=== PATIENT | female | born 1975 | race Caucasian/White ===

== ENCOUNTER → 2018-12-23 | Outpatient (CLI) | payer BC | LOC: MC.RAD 15:30 | DX: Z12.31 Encounter for screening mammogram for malignant neoplasm of breast (principal); N63.21 Unspecified lump in the left breast, upper outer quadrant ==

== ENCOUNTER → 2018-12-30 | Outpatient (CLI) | payer BC | LOC: MC.RAD 10:00 | DX: N63.32 Unspecified lump in axillary tail of the left breast (principal); R59.0 Localized enlarged lymph nodes ==

== ENCOUNTER → 2018-12-31 | Outpatient (CLI) | payer BC | LOC: MC.RAD 13:31 | DX: N63.20 Unspecified lump in the left breast, unspecified quadrant (principal); Z98.82 Breast implant status ==

== ENCOUNTER → 2019-01-17 | Outpatient (CLI) | payer BC | LOC: COL.VAS 01-14 10:45 | DX: Z51.11 Encounter for antineoplastic chemotherapy (principal); C50.612 Malignant neoplasm of axillary tail of left female breast ==

== ENCOUNTER → 2019-03-16 | Outpatient (CLI) | payer BC | LOC: MC.RAD 08:24 | DX: C50.612 Malignant neoplasm of axillary tail of left female breast (principal) ==

== ENCOUNTER 2019-06-28 06:49 | Day surgery (SDC) | payer BC ==
[~2019-06-28] VITALS: Ht 172.7 cm; Wt 111.6 kg
[2019-06-28] MEDS ORDERED: VENTOLIN0.09 MG IH (08:12)
[2019-06-28] MEDS ORDERED: NEURONTIN300 MG/CAP PO ×2 (08:13→08:14)
[2019-06-28] MEDS ORDERED: VALTREX 50500 MG/TAB PO (08:14)
[2019-06-28] MEDS ORDERED: LEXAPRO 10MG10 MG PO (08:15)
[2019-06-28] MEDS ORDERED: FLONASE NASAL S16 GM NS (08:15)
[2019-06-28] MEDS ORDERED: ZOFRAN8 MG PO (08:16)
[2019-06-28] MEDS ORDERED: COMPAZINE 110 MG/TAB PO (08:16)
[2019-06-28] MEDS ORDERED: PRILOTC PO (08:17)
[2019-06-28] MEDS ORDERED: ZYRTEC 10MG10 MG PO (08:18)
[2019-06-28] MEDS ORDERED: MULTIPLE VITAMI1 CAP PO (08:18)
[2019-06-28] MEDS ORDERED: VITAMINC1000TA PO (08:19)
[2019-06-28] MEDS ORDERED: [UNRECOGNIZED DRUG - OTHER] PO (08:20)
[2019-06-28] MEDS ORDERED: PROBIOTIC PO (08:20)
[2019-06-28] MEDS ORDERED: DULCOLAX STOOL100 MG PO (08:20)
--- NOTE | 2019-06-28 09:15 | NUR ---
Patient returns to radiology per wheelchair with radiology staff.
--- NOTE | 2019-06-28 11:05 | NUR ---
Patient returns from radiology per wheelchair and ambulates to the bathroom. Gait steady and resting on cart. IV fluids connected to port a catheter on the right chest. Family at bedside. Call light in reach and allowed to rest.
[2019-06-28 11:18] VITALS: BP 126/80; PULSE 84; TEMP 97.9
[2019-06-28 15:35] VITALS: BP 116/77; PULSE 96
--- NOTE | 2019-06-28 15:35 | NUR ---
Patient returns to room 1 per cart from PACU and is awake and alert. Accompanied by Anita KAY. Patient denies pain or nausea. [place] set dressing dry left axilla. IV infusing via port a catheter right chest. Site is free of redness or swelling. Temp 98.0 and sats 97% on 2L per nasal cannula. Siderails up x2 and call light in reach. Parents in room. Patient taking ice water and ice chips.
[2019-06-28] MEDS ORDERED: NORCO 325 MG-51 TAB PO (15:44)
[2019-06-28 15:50] VITALS: BP 120/82; PULSE 94
--- NOTE | 2019-06-28 15:50 | NUR ---
Talking on the phone and denies pain or nausea.
[2019-06-28 16:05] VITALS: BP 107/76; PULSE 89
--- NOTE | 2019-06-28 16:05 | NUR ---
Oxygen removed and sats 97%. Eating muffin.
[2019-06-28 16:20] VITALS: BP 105/82; PULSE 90
--- NOTE | 2019-06-28 16:20 | NUR ---
Resting and talking with parents. Denies pain or nausea.
--- NOTE | 2019-06-28 16:33 | NUR ---
Patient medicated with Motrin 600mg for complaints of incisional soreness with movement. Assisted up to the bathroom and is able to void and returns to room. IV fluids discontinued. Port a catheter flushed with normal saline and Heparin per protocol. Port deaccessed and bandaid appplied to site. Site is free of redness or swelling. Patient dresses self.
[2019-06-28 16:40] VITALS: BP 114/79; PULSE 89; TEMP 98
--- NOTE | 2019-06-28 16:50 | NUR ---
Given dismissal instructions and provided script for Bradshaw. Instructed that she may take Motrin and Bradshaw for the pain and to apply ice as directed.
--- NOTE | 2019-06-28 16:54 | NUR ---
Patient dismissed to home per private vehicle driven by parents and taken to the front door by wheelchair and assisted into vehicle by this RN.
== END 2019-06-28 16:54 | disposition home or self-care (01) ==
LOC: SDCO 06:49
DX: C50.412 Malignant neoplasm of upper-outer quadrant of left female breast (principal); C77.3 Secondary and unspecified malignant neoplasm of axilla and upper limb lymph nodes; Z92.21 Personal history of antineoplastic chemotherapy; Z79.899 Other long term (current) drug therapy
CPT/HCPCS: A9541; J0690; J1100; J1170; J1644; J2250; J2405; J2704; J3010; J7120; Q9968

== ENCOUNTER → 2020-01-19 | Outpatient (CLI) | payer BC ==
[~2020-01-19] MED LIST: COMPAZINE 110 MG/TAB PO; DULCOLAX STOOL100 MG PO; FLONASE NASAL S16 GM NS; LEXAPRO 10MG10 MG PO; MULTIPLE VITAMI1 CAP PO; NEURONTIN300 MG/CAP PO; NORCO 325 MG-51 TAB PO; PRILOTC PO; PROBIOTIC PO; VALTREX 50500 MG/TAB PO; VENTOLIN0.09 MG IH; VITAMINC1000TA PO; ZOFRAN8 MG PO; ZYRTEC 10MG10 MG PO; [UNRECOGNIZED DRUG - OTHER] PO
== END ==
LOC: MC.RAD 09:50
DX: Z12.31 Encounter for screening mammogram for malignant neoplasm of breast (principal); C50.612 Malignant neoplasm of axillary tail of left female breast; Z98.890 Other specified postprocedural states

== ENCOUNTER → 2020-04-02 | Outpatient (CLI) | payer BC | LOC: MC.RAD 09:30 | DX: N63.20 Unspecified lump in the left breast, unspecified quadrant (principal); Z85.3 Personal history of malignant neoplasm of breast; Z98.890 Other specified postprocedural states; Z92.3 Personal history of irradiation ==

== ENCOUNTER 2020-06-28 12:19 | Observation (INO) | payer BC ==
[~2020-06-28] VITALS: Ht 172.7 cm; Wt 113.6 kg
[2020-06-28] MEDS ORDERED: METAMUCIL3.4 GM/DOS PO (12:37)
[2020-06-28 13:09] LABS: COLLECTION METHOD CLEAN CATCH
[2020-06-28 13:16] LABS: BASO % 0.3 % (0.0-2.0); EOS % 0.3 % (0-4.0); GRAN # 10.2 (1.4-6.5); GRAN % 86.6 % (42.2-75.2); HEMATOCRIT 41.6 % (37.0-47.0); HEMOGLOBIN 13.9 g/dl (12.5-16.0); LYMPH # 0.8 (1.2-3.4); MEAN CELL VOLUME 103 fl (80.0-100.0); MEAN CORPUSCULAR HEMOGLOBIN 34 pg (27.0-31.0); MEAN CORPUSCULAR HGB CONC 33 g/dl (33.0-37.0); MEAN PLATELET VOLUME 9.3 fl (7.4-10.4); MONO # 0.7 (0.1-0.6); MONO % 5.6 % (1.7-9.3); PLATELET COUNT 221 K/mm3 (130-400); RED BLOOD COUNT 4.06 M/mm3 (4.10-5.30); REDCELL DISTRIBUTION WIDTH-CV 13.2 % (11.5-14.5)
[2020-06-28 13:19] LABS: MUCOUS Present /lpf; PH 5 (5-8); URINE APPEARANCE Hazy; URINE BACTERIA None Seen /hpf; URINE BILIRUBIN Negative (NEGATIVE); URINE BLOOD Negative (NEGATIVE); URINE COLOR Yellow; URINE GLUCOSE Negative (NEGATIVE); URINE KETONE Trace (NEGATIVE); URINE LEUKOCYTE ESTERASE Negative (NEGATIVE); URINE NITRATE Negative (NEGATIVE); URINE PROTEIN(semi-quant) Negative (NEGATIVE); URINE RBC None Seen /hpf; URINE UROBILINOGEN Negative (NEGATIVE)
[2020-06-28 13:24] LABS: CREATININE, serum 0.63 (0.52-1.25)
[2020-06-28 13:25] LABS: ALBUMIN 4.7 gm/dL (3.5-5.0); BILIRUBIN,TOTAL 0.6 mg/dL (0.0-1.0); CALCIUM 9.5 mg/dL (8.4-10.2); POTASSIUM 3.7 mmol/L (3.4-5.0); TOTAL PROTEIN 8.1 gm/dL (6.4-8.2)
[2020-06-28] MEDS ORDERED: FASTIN30 MG PO (16:03)
[2020-06-28 19:35] VITALS: BP 110/65; PULSE 82; TEMP 98.4
[2020-06-28 20:05] VITALS: BP 117/67; PULSE 82
[2020-06-28 21:05] VITALS: BP 11/67; PULSE 87
[2020-06-28 22:05] VITALS: BP 98/56; PULSE 76
--- NOTE | 2020-06-28 22:30 | NUR ---
TAKING PO FLUIDS WELL. ATE JELLO. DENIES NAUSEA.
[2020-06-28 23:14] VITALS: BP 99/57; PULSE 81; TEMP 97.8
--- NOTE | 2020-06-28 23:19 | NUR ---
PT RESTING, NO RESP DISTRESS. LAP SITES X3 CDI. SCD'S ON BILAT. NO NEEDS AT THIS TIME. CALL LIGHT IN REACH.
--- NOTE | 2020-06-28 23:53 | NUR ---
PT SLEEPING. NO DISTRESS.
[2020-06-29 03:26] VITALS: BP 107/61; PULSE 76; TEMP 98.5
--- NOTE | 2020-06-29 07:04 | NUR ---
PT SLEEPING IN BED AT REPORT. PT HAS BEEN UP AND PEED DURING THE NIGHT. TAKEN APAP FOR PAIN, IS EATING WELL.
[2020-06-29 07:15] VITALS: BP 104/61; PULSE 74; TEMP 98.6
[2020-06-29] MEDS ORDERED: NORCO 325 MG-51 TAB PO (07:39)
--- NOTE | 2020-06-29 09:14 | NUR ---
PT RECEIVED PRN APAP PRIOR TO DISCHARGE THIS AM. DENIED MUCH PAIN WHILE LAYING IN BED. SITES LOOKED CDI WITH BANDAID DRESSINGS. PT HEALTH SUMMARY, DISCHARGE SUMMARY, AND HOME MEDS PRINTED AND REVIEWED WITH PT. FU APPTS DISCUSSED, PRESCRIPTION FOR NORCO SENT TO PHARMACY OF CHOICE. BELONGINGS GATHERED BY PT AND PT AMBULATED WITH NURSE TO RIDE HOME. PT DENIED QUESTIONS.
--- NOTE | 2020-06-29 10:29 | NUR ---
Took patients vitals at 0715 and inquired about level of pain; patient stated she was not in pain at that time. Gave scheduled morning meds and removed INT before discharge; INT site showed no signs of redness or swelling; covered site with cotton ball and band-aid.
[2020-06-30] MEDS ORDERED: NORCO 325 MG-7.1 TAB PO (07:32)
[2020-06-30] MEDS ORDERED: MOTRIN 600600 MG/TAB PO (07:32)
== END 2020-06-29 09:00 | disposition home or self-care (01) ==
LOC: COL.ER 12:19 → SURG 15:04
PROVIDERS: Emergency Medicine; ADMIT Surgery
DX: K35.80 Unspecified acute appendicitis (principal); Z20.822 Contact with and (suspected) exposure to COVID-19; J45.909 Unspecified asthma, uncomplicated; F32.9 Major depressive disorder, single episode, unspecified; G62.9 Polyneuropathy, unspecified
CPT/HCPCS: G0378; J0330; J1885; J2250; J2270; J2543; J2704; J3010; J7030; J7120; Q9967

== ENCOUNTER → 2021-01-21 | Outpatient (CLI) | payer BC ==
[~2021-01-21] MED LIST changes: +FASTIN30 MG PO; +METAMUCIL3.4 GM/DOS PO; +MOTRIN 600600 MG/TAB PO; +NORCO 325 MG-7.1 TAB PO
== END ==
LOC: MC.RAD 08:15
DX: Z12.31 Encounter for screening mammogram for malignant neoplasm of breast (principal); C50.612 Malignant neoplasm of axillary tail of left female breast

== ENCOUNTER 2022-04-09 15:12 | Emergency (ER) | payer BC ==
[~2022-04-09] VITALS: Ht 172.7 cm; Wt 114.1 kg
[2022-04-09 15:32] VITALS: TEMP 97.1
[2022-04-09 16:52] LABS: BASO % 0.6 % (0.0-2.0); EOS # 0.1 K/mm3 (0.0-0.7); EOS % 2.3 % (0.0-4.0); GRAN # 2.6 K/mm3 (1.4-6.5); GRAN % 55.3 % (42.2-75.2); HEMATOCRIT 38.7 % (37.0-47.0); HEMOGLOBIN 13.5 g/dl (12.5-16.0); LYMPH # 1.6 K/mm3 (1.2-3.4); LYMPH % 33.8 % (20.0-51.0); MEAN CELL VOLUME 99 fl (80.0-100.0); MEAN CORPUSCULAR HEMOGLOBIN 35 pg (27-31); MEAN CORPUSCULAR HGB CONC 35 g/dl (33.0-37.0); MEAN PLATELET VOLUME 10.4 fl (7.4-10.4); MONO # 0.4 K/mm3 (0.1-0.6); MONO % 7.8 % (1.7-9.3); PLATELET COUNT 199 K/mm3 (130-400); RED BLOOD COUNT 3.91 M/mm3 (4.10-5.30); REDCELL DISTRIBUTION WIDTH-CV 13.1 % (11.5-14.5)
[2022-04-09 17:33] LABS: ALBUMIN 3.9 gm/dL (3.5-5.0); BILIRUBIN,TOTAL 0.8 mg/dL (0.2-1.2); CALCIUM 9.7 mg/dL (8.4-10.2); CREATININE, serum 0.76 mg/dL (0.57-1.11); POTASSIUM 3.9 mmol/L (3.5-4.5); TOTAL PROTEIN 7.4 gm/dL (6.2-8.1)
[2022-04-09 17:53] LABS: PROLACTIN 4.7 ng/mL (5.18-26.53)
[2022-04-09 18:30] VITALS: BP 131/85; PULSE 83
== END 2022-04-09 18:30 | disposition home or self-care (01) ==
LOC: COL.ER 15:12
PROVIDERS: Family Medicine
DX: R55 Syncope and collapse (principal); E86.0 Dehydration
CPT/HCPCS: J7120

== ENCOUNTER → 2023-08-04 | Outpatient (CLI) | payer BC ==
[~2023-08-04] MED LIST changes: +Iohexol 300 - 100 ML VIAL IV ONE; +NS 100 ML IV SCH
== END ==
LOC: COL.RAD 08:05
DX: C50.612 Malignant neoplasm of axillary tail of left female breast (principal); Z98.82 Breast implant status; Z90.13 Acquired absence of bilateral breasts and nipples
CPT/HCPCS: Q9967